=== PATIENT | male | born 1950 | race Caucasian/White ===

== ENCOUNTER 2018-09-09 01:07 | Inpatient (IN) ==
[2018-09-09] MEDS ORDERED: FUROSEMIDE 40 MG/4 ML VIAL ONE (01:16)
[2018-09-09] MEDS ORDERED: FUROSEMIDE 40 MG/4 ML VIAL IV STA (01:18)
[2018-09-09 01:31] LABS: Basophils % 1.1 % (0.0-0.8); Eosinophils % 0.5 % (0.00-10.9); Hemoglobin 8.4 GM/DL (14.0-18.0); Immature Granulocytes % 0.8 %; Immature Granulocytes Absolute 0.03 #; Lymphocytes # 0.5 10*3/uL (1.4-4.0); Lymphocytes % 14.5 % (21.2-54.2); Mean Corpuscular Hemoglobin 29 PG (27-34); Mean Corpuscular Volume 96.9 FL (87-102); Mean Platelet Volume 10.6 FL (9.6-12.0); Monocytes # 1.2 10*3/uL (0.11-0.8); Monocytes % 33.9 % (1.7-12.7); Neutrophils # 1.8 10*3/uL (1.4-7.4); Neutrophils % 49.2 % (38.7-73.9); Platelet Count 327 T/CUMM (130-400); Red Blood Count 2.89 MC/CUMM (3.8-5.5); Red Cell Distribution Width 17.7 % (9.3-17.3); White Blood Count 3.7 T/CUMM (4-12)
[2018-09-09 01:53] LABS: Albumin 2.4 G/DL (3.4-5.0); Bilirubin,Total 0.4 MG/DL (0.2-1.0); Calcium 8.9 MG/DL (8.5-10.1); Osmolality,Calculated 274.8 MOS/KG (273-304); Potassium 3.8 MMOL/L (3.5-5.1); Total Protein 6.6 G/DL (6.4-8.3)
[2018-09-09] MEDS ORDERED: ONDANSETRON 4 MG/2 ML VIAL IV PRN (03:03)
[2018-09-09] MEDS ORDERED: DEXTROSE 50% 25 GM/50 ML VIAL IV PRN (03:03)
[2018-09-09] MEDS ORDERED: DOCUSATE SODIUM 100 MG CAPSULE PO PRN (03:03)
[2018-09-09] MEDS ORDERED: GLUCAGON 1 MG VIAL IM PRN (03:03)
[2018-09-09] MEDS ORDERED: ALBUTEROL/IPRATROPIUM 3 ML NEB RESP TX PRN (03:08)
[2018-09-09 03:27] LABS: PT Patient Result 11.1 SECS; Partial Thromboplastin Time 28.8 SECS (0-40)
[2018-09-09 04:51] LABS: Anisocytosis 1+; Band Neutrophils 6 % (0-10); Lymphocytes 16 % (20-55); Macrocytosis 1+; Metamyelocytes 4 %; Myelocytes 1 %; Platelet Estimate Normal; Polychromasia Few; Segmented Neutrophils 42 % (50-85); Total Cells Counted 100
[2018-09-09] MEDS ORDERED: HYOSCYAMINE 0.125 MG TABLET SL PRN (05:14)
[2018-09-09] MEDS: LEVALBUTEROL 1.25 MG/3 ML NEB RESP TX SCH ×4 (05:30→18:56)
[2018-09-09] MEDS: ENALAPRIL 10 MG TABLET PO SCH ×2 (08:15→21:36)
[2018-09-09] MEDS: ROSUVASTATIN 20 MG TABLET PO SCH (08:15)
[2018-09-09] MEDS: MEGESTROL 40 MG TABLET PO SCH ×3 (08:15→20:08)
[2018-09-09] MEDS: TRIAMTERENE/HCTZ 37.5-25 MG CAPSULE PO SCH (08:15)
[2018-09-09] MEDS: METOPROLOL TARTRATE 100 MG TABLET PO SCH ×2 (08:16→21:36)
[2018-09-09] MEDS: FUROSEMIDE 40 MG/4 ML VIAL IV SCH ×2 (08:25→15:48)
[2018-09-09] MEDS ORDERED: ENOXAPARIN 40 MG/0.4 ML SYRINGE SUBCUT SCH (09:00)
[2018-09-09 09:01] LABS: Apearance,Urine CLEAR (Clear); Bacteria,Urine Occasional /HPF (Few); Bilirubin,Urine Negative (Negative); Blood, Urine Negative (Negative); Glucose,Urine (UA) Negative (Negative); Hyaline Casts,Urine 13 /LPF (0-3); Ketones,Urine Negative (Negative); Mucus,Urine Occasional /LPF (Occasional); Nitrite,Urine Negative (Negative); Protein,Urine Negative; RBC,Urine 1 /HPF (0-4); Urine Color Straw (Yellow); Urine Specific Gravity 1.005 (1.001-1.035); Urine Urobilinogen < 2.0 EU/DL (0.2-1.0)
[2018-09-09] MEDS: ACETAMINOPHEN 325 MG TABLET PO PRN (09:10)
[2018-09-09] MEDS: ENOXAPARIN 40 MG/0.4 ML SYRINGE SUBCUT SCH (15:45)
[2018-09-09] MEDS: MORPHINE 4 MG/1 ML VIAL IV PRN (20:09)
[2018-09-10] MEDS: LEVALBUTEROL 1.25 MG/3 ML NEB RESP TX SCH ×4 (00:23→19:04)
[2018-09-10] MEDS: MORPHINE 4 MG/1 ML VIAL IV PRN ×2 (02:23→20:25)
[2018-09-10 06:29] LABS: Basophils % 0.6 % (0.0-0.8); Hematocrit 28.9 VOL% (42.0-52.0); Hemoglobin 8.8 GM/DL (14.0-18.0); Immature Granulocytes % 2.1 %; Immature Granulocytes Absolute 0.15 #; Lymphocytes # 0.9 10*3/uL (1.4-4.0); Lymphocytes % 12.8 % (21.2-54.2); Mean Corpuscular HGB Conc 30.4 GM/DL (32-36); Mean Corpuscular Hemoglobin 29 PG (27-34); Mean Corpuscular Volume 94.8 FL (87-102); Mean Platelet Volume 10.8 FL (9.6-12.0); Monocytes % 28.4 % (1.7-12.7); NRBC # 0.03 10*3/uL; Neutrophils % 56.1 % (38.7-73.9); Platelet Count 345 T/CUMM (130-400); Red Blood Count 3.05 MC/CUMM (3.8-5.5); Red Cell Distribution Width 18.6 % (9.3-17.3)
[2018-09-10 07:02] LABS: Calcium 8.3 MG/DL (8.5-10.1); Osmolality,Calculated 274.8 MOS/KG (273-304); Potassium 2.8 MMOL/L (3.5-5.1)
[2018-09-10 07:48] LABS: Band Neutrophils 38 % (0-10); Lymphocytes 13 % (20-55); Segmented Neutrophils 24 % (50-85); Total Cells Counted 100
[2018-09-10 07:49] LABS: Anisocytosis 2+; Hypochromasia 2+; Platelet Estimate Normal; Poikilocytosis Slight
[2018-09-10] MEDS: POTASSIUM CHLORIDE RIDER 20 MEQ in PREMIX 1 EACH IV PRN ×2 (07:51→09:51)
[2018-09-10] MEDS: METOPROLOL TARTRATE 100 MG TABLET PO SCH ×2 (08:34→20:20)
[2018-09-10] MEDS: TRIAMTERENE/HCTZ 37.5-25 MG CAPSULE PO SCH (08:34)
[2018-09-10] MEDS: ROSUVASTATIN 20 MG TABLET PO SCH (08:34)
[2018-09-10] MEDS: MEGESTROL 40 MG TABLET PO SCH ×3 (08:34→20:20)
[2018-09-10] MEDS: FUROSEMIDE 40 MG/4 ML VIAL IV SCH ×2 (08:35→16:45)
[2018-09-10] MEDS: guaiFENesin/CODEINE 5 ML LIQUID PO PRN ×2 (09:58→22:10)
[2018-09-10] MEDS: POTASSIUM CHLORIDE 20 MEQ TABLET PO SCH ×3 (10:06→16:45)
[2018-09-10] MEDS: ENALAPRIL 10 MG TABLET PO SCH (10:07)
[2018-09-10] MEDS: ENALAPRIL 5 MG TABLET PO SCH (11:03)
[2018-09-10] MEDS: POTASSIUM CHLORIDE RIDER 10 MEQ in PREMIX 1 EACH IV PRN (12:41)
[2018-09-10] MEDS: ENOXAPARIN 40 MG/0.4 ML SYRINGE SUBCUT SCH (16:44)
[2018-09-11] MEDS: LEVALBUTEROL 1.25 MG/3 ML NEB RESP TX SCH ×4 (00:24→20:09)
[2018-09-11] MEDS: guaiFENesin/CODEINE 5 ML LIQUID PO PRN ×4 (02:19→20:55)
[2018-09-11] MEDS: MORPHINE 4 MG/1 ML VIAL IV PRN ×2 (04:22→21:10)
[2018-09-11 06:33] LABS: Basophils # 0.1 10*3/uL (0.0-0.2); Basophils % 0.6 % (0.0-0.8); Eosinophils % 0.2 % (0.00-10.9); Hematocrit 29.9 VOL% (42.0-52.0); Hemoglobin 9.1 GM/DL (14.0-18.0); Immature Granulocytes % 3.7 %; Mean Corpuscular HGB Conc 30.4 GM/DL (32-36); Mean Corpuscular Hemoglobin 28 PG (27-34); Mean Corpuscular Volume 93.4 FL (87-102); Mean Platelet Volume 10.7 FL (9.6-12.0); Monocytes # 2.3 10*3/uL (0.11-0.8); Monocytes % 21.3 % (1.7-12.7); NRBC # 0.03 10*3/uL; Neutrophils # 7.1 10*3/uL (1.4-7.4); Neutrophils % 65.2 % (38.7-73.9); Platelet Count 352 T/CUMM (130-400); Red Cell Distribution Width 18.2 % (9.3-17.3); White Blood Count 10.9 T/CUMM (4-12)
[2018-09-11 06:37] LABS: Calcium 8.6 MG/DL (8.5-10.1); Osmolality,Calculated 272.1 MOS/KG (273-304); Potassium 3.6 MMOL/L (3.5-5.1)
[2018-09-11 07:21] LABS: Anisocytosis 2+; Band Neutrophils 22 % (0-10); Lymphocytes 9 % (20-55); Platelet Estimate Normal; Polychromasia Slight; Segmented Neutrophils 55 % (50-85); Total Cells Counted 100
[2018-09-11 07:22] LABS: Hypochromasia 1+
[2018-09-11] MEDS: TRIAMTERENE/HCTZ 37.5-25 MG CAPSULE PO SCH (08:47)
[2018-09-11] MEDS: MEGESTROL 40 MG TABLET PO SCH ×3 (08:47→20:54)
[2018-09-11] MEDS: FUROSEMIDE 40 MG/4 ML VIAL IV SCH ×2 (08:48→15:54)
[2018-09-11] MEDS: ENALAPRIL 5 MG TABLET PO SCH (08:48)
[2018-09-11] MEDS: METOPROLOL TARTRATE 100 MG TABLET PO SCH ×2 (08:49→20:53)
[2018-09-11] MEDS: POTASSIUM CHLORIDE RIDER 20 MEQ in PREMIX 1 EACH IV PRN (08:50)
[2018-09-11] MEDS ORDERED: MAGNESIUM SULF RIDER 2 GM in PREMIX 1 EACH IV ONE (09:36)
[2018-09-11] MEDS: POLYETHYLENE GLYCOL POWDER 17 GM PACK PO SCH (13:04)
[2018-09-11] MEDS: fentaNYL 50 MCG/HR PATCH TRANSDERM SCH (13:04)
[2018-09-11] MEDS: DOCUSATE SODIUM 100 MG CAPSULE PO SCH ×2 (13:05→20:54)
[2018-09-11] MEDS: INSULIN REGULAR 100 UNIT/ML SUBCUT SCH ×2 (15:51→21:08)
[2018-09-11] MEDS: ENOXAPARIN 40 MG/0.4 ML SYRINGE SUBCUT SCH (15:54)
[2018-09-12] MEDS: LEVALBUTEROL 1.25 MG/3 ML NEB RESP TX SCH ×4 (00:18→19:08)
[2018-09-12] MEDS: guaiFENesin/CODEINE 5 ML LIQUID PO PRN ×2 (01:03→22:03)
[2018-09-12] MEDS: FUROSEMIDE 40 MG/4 ML VIAL IV SCH ×2 (09:47→17:25)
[2018-09-12] MEDS: DOCUSATE SODIUM 100 MG CAPSULE PO SCH ×2 (09:48→22:04)
[2018-09-12] MEDS: MEGESTROL 40 MG TABLET PO SCH ×3 (09:48→22:04)
[2018-09-12] MEDS: POLYETHYLENE GLYCOL POWDER 17 GM PACK PO SCH (09:48)
[2018-09-12] MEDS: INSULIN REGULAR 100 UNIT/ML SUBCUT SCH ×3 (10:53→22:05)
[2018-09-12] MEDS: TRIAMTERENE/HCTZ 37.5-25 MG CAPSULE PO SCH (10:54)
[2018-09-12] MEDS: METOPROLOL TARTRATE 100 MG TABLET PO SCH ×2 (10:54→22:05)
[2018-09-12] MEDS: ENOXAPARIN 40 MG/0.4 ML SYRINGE SUBCUT SCH (17:26)
[2018-09-12] MEDS: ZINC OXIDE PASTE 113 GM TUBE TOP SCH ×2 (17:27→22:05)
[2018-09-12] MEDS: MORPHINE 4 MG/1 ML VIAL IV PRN (22:06)
[2018-09-13] MEDS: LEVALBUTEROL 1.25 MG/3 ML NEB RESP TX SCH ×4 (00:20→20:05)
[2018-09-13] MEDS: MORPHINE 4 MG/1 ML VIAL IV PRN ×3 (02:03→21:14)
[2018-09-13] MEDS ORDERED: HEPARIN LOCK FLUSH 500 UNIT/5 ML SYRINGE IV ONE (04:32)
[2018-09-13] MEDS: HEPARIN LOCK FLUSH 500 UNIT/5 ML SYRINGE IV PRN (04:40)
[2018-09-13 05:50] LABS: Basophils # 0.1 10*3/uL (0.0-0.2); Basophils % 0.8 % (0.0-0.8); Eosinophils % 0.2 % (0.00-10.9); Hematocrit 30.9 VOL% (42.0-52.0); Hemoglobin 9.3 GM/DL (14.0-18.0); Immature Granulocytes % 5.5 %; Immature Granulocytes Absolute 0.94 #; Lymphocytes # 1.1 10*3/uL (1.4-4.0); Lymphocytes % 6.4 % (21.2-54.2); Mean Corpuscular HGB Conc 30.1 GM/DL (32-36); Mean Corpuscular Hemoglobin 28 PG (27-34); Mean Corpuscular Volume 92.8 FL (87-102); Mean Platelet Volume 10.2 FL (9.6-12.0); Monocytes # 2.2 10*3/uL (0.11-0.8); Neutrophils # 12.7 10*3/uL (1.4-7.4); Neutrophils % 74.1 % (38.7-73.9); Platelet Count 405 T/CUMM (130-400); Red Blood Count 3.33 MC/CUMM (3.8-5.5); Red Cell Distribution Width 18.6 % (9.3-17.3); White Blood Count 17.1 T/CUMM (4-12)
[2018-09-13 06:09] LABS: Calcium 8.6 MG/DL (8.5-10.1); Hypochromasia 1+; Lymphocytes 2 % (20-55); Nucleated Red Blood Cells 1 (0-5); Ovalocytes Slight; Platelet Estimate Adequate; Potassium 3.2 MMOL/L (3.5-5.1); Segmented Neutrophils 84 % (50-85); Total Cells Counted 100
[2018-09-13] MEDS ORDERED: fentaNYL 50 MCG/HR PATCH TRANSDERM SCH (09:00)
[2018-09-13] MEDS ORDERED: FUROSEMIDE 40 MG/4 ML VIAL IV ONE (09:03)
[2018-09-13] MEDS: INSULIN REGULAR 100 UNIT/ML SUBCUT SCH ×4 (09:43→21:04)
[2018-09-13] MEDS: POTASSIUM CHLORIDE 20 MEQ TABLET PO SCH ×4 (09:44→21:11)
[2018-09-13] MEDS: MEGESTROL 40 MG TABLET PO SCH ×4 (09:45→21:14)
[2018-09-13] MEDS: DOCUSATE SODIUM 100 MG CAPSULE PO SCH ×2 (09:45→21:14)
[2018-09-13] MEDS: POLYETHYLENE GLYCOL POWDER 17 GM PACK PO SCH (09:45)
[2018-09-13] MEDS: METOPROLOL TARTRATE 100 MG TABLET PO SCH ×2 (09:50→21:13)
[2018-09-13] MEDS: TRIAMTERENE/HCTZ 37.5-25 MG CAPSULE PO SCH (09:50)
[2018-09-13] MEDS: ZINC OXIDE PASTE 113 GM TUBE TOP SCH ×2 (09:51→21:14)
[2018-09-13] MEDS ORDERED: MAGNESIUM CITRATE 300 ML BOTTLE PO ONE (13:38)
[2018-09-13] MEDS: guaiFENesin/CODEINE 5 ML LIQUID PO PRN (14:43)
[2018-09-13] MEDS: FUROSEMIDE 20 MG/2 ML VIAL IV SCH (16:00)
[2018-09-13] MEDS: FUROSEMIDE 40 MG/4 ML VIAL IV SCH (17:41)
[2018-09-13] MEDS: HYDROcodone/CHLORPHENIRAMINE ER 5 ML UDCUP PO PRN (21:10)
[2018-09-14] MEDS: LEVALBUTEROL 1.25 MG/3 ML NEB RESP TX SCH ×4 (00:28→19:10)
[2018-09-14 08:01] LABS: Basophils # 0.2 10*3/uL (0.0-0.2); Basophils % 0.8 % (0.0-0.8); Eosinophils % 0.2 % (0.00-10.9); Hematocrit 29.2 VOL% (42.0-52.0); Hemoglobin 8.7 GM/DL (14.0-18.0); Immature Granulocytes % 5.7 %; Immature Granulocytes Absolute 1.05 #; Lymphocytes # 1.1 10*3/uL (1.4-4.0); Mean Corpuscular HGB Conc 29.8 GM/DL (32-36); Mean Corpuscular Hemoglobin 28 PG (27-34); Mean Corpuscular Volume 94.8 FL (87-102); Monocytes % 10.7 % (1.7-12.7); NRBC # 0.02 10*3/uL; Neutrophils # 14.1 10*3/uL (1.4-7.4); Neutrophils % 76.6 % (38.7-73.9); Platelet Count 377 T/CUMM (130-400); Red Blood Count 3.08 MC/CUMM (3.8-5.5); White Blood Count 18.5 T/CUMM (4-12)
[2018-09-14] MEDS: INSULIN REGULAR 100 UNIT/ML SUBCUT SCH ×4 (08:11→21:12)
[2018-09-14 08:26] LABS: Band Neutrophils 1 % (0-10); Hypochromasia 1+; Lymphocytes 6 % (20-55); Ovalocytes Slight; Platelet Estimate Adequate; Segmented Neutrophils 85 % (50-85); Total Cells Counted 100
[2018-09-14 08:27] LABS: Calcium 8.4 MG/DL (8.5-10.1); Osmolality,Calculated 278.7 MOS/KG (273-304); Potassium 3.4 MMOL/L (3.5-5.1)
[2018-09-14] MEDS: TRIAMTERENE/HCTZ 37.5-25 MG CAPSULE PO SCH (08:54)
[2018-09-14] MEDS: MEGESTROL 40 MG TABLET PO SCH ×3 (09:02→21:12)
[2018-09-14] MEDS: METOPROLOL TARTRATE 100 MG TABLET PO SCH ×3 (09:03→21:53)
[2018-09-14] MEDS: DOCUSATE SODIUM 100 MG CAPSULE PO SCH ×2 (09:04→21:13)
[2018-09-14] MEDS: fentaNYL 50 MCG/HR PATCH TRANSDERM SCH (09:04)
[2018-09-14] MEDS: FUROSEMIDE 20 MG/2 ML VIAL IV SCH ×2 (09:05→17:00)
[2018-09-14] MEDS: ZINC OXIDE PASTE 113 GM TUBE TOP SCH ×2 (09:05→21:14)
[2018-09-14] MEDS: POLYETHYLENE GLYCOL POWDER 17 GM PACK PO SCH (09:05)
[2018-09-14] MEDS: HYDROcodone/CHLORPHENIRAMINE ER 5 ML UDCUP PO PRN (10:19)
[2018-09-14] MEDS: MORPHINE 4 MG/1 ML VIAL IV PRN ×2 (17:08→21:16)
[2018-09-15] MEDS: LEVALBUTEROL 1.25 MG/3 ML NEB RESP TX SCH ×4 (01:30→19:32)
[2018-09-15] MEDS: MORPHINE 4 MG/1 ML VIAL IV PRN ×3 (05:21→21:22)
[2018-09-15 07:47] LABS: Basophils # 0.2 10*3/uL (0.0-0.2); Basophils % 0.7 % (0.0-0.8); Eosinophils # 0.1 10*3/uL (0.0-0.87); Eosinophils % 0.2 % (0.00-10.9); Hematocrit 31.7 VOL% (42.0-52.0); Hemoglobin 9.3 GM/DL (14.0-18.0); Immature Granulocytes % 4.5 %; Immature Granulocytes Absolute 1.15 #; Lymphocytes # 0.6 10*3/uL (1.4-4.0); Lymphocytes % 2.2 % (21.2-54.2); Mean Corpuscular HGB Conc 29.3 GM/DL (32-36); Mean Corpuscular Hemoglobin 28 PG (27-34); Mean Corpuscular Volume 94.1 FL (87-102); Mean Platelet Volume 10.3 FL (9.6-12.0); Monocytes # 1.8 10*3/uL (0.11-0.8); Monocytes % 7.1 % (1.7-12.7); Neutrophils # 21.9 10*3/uL (1.4-7.4); Neutrophils % 85.3 % (38.7-73.9); Platelet Count 413 T/CUMM (130-400); Red Blood Count 3.37 MC/CUMM (3.8-5.5); White Blood Count 25.6 T/CUMM (4-12)
[2018-09-15 07:58] LABS: Band Neutrophils 4 % (0-10); Hypochromasia 1+; Lymphocytes 3 % (20-55); Ovalocytes Slight; Platelet Estimate Adequate; Segmented Neutrophils 87 % (50-85); Total Cells Counted 100
[2018-09-15 08:10] LABS: Calcium 8.4 MG/DL (8.5-10.1); Potassium 3.1 MMOL/L (3.5-5.1)
[2018-09-15] MEDS ORDERED: DOXYCYCLINE HYCLATE INJ 200 MG, LIDOCAINE 1% INJ 20 ML in STERILE WATER INJ 40 ML INTRAPLEUR ONE (09:24)
[2018-09-15] MEDS: POLYETHYLENE GLYCOL POWDER 17 GM PACK PO SCH (09:44)
[2018-09-15] MEDS: FUROSEMIDE 20 MG/2 ML VIAL IV SCH ×2 (09:44→16:10)
[2018-09-15] MEDS: INSULIN REGULAR 100 UNIT/ML SUBCUT SCH ×4 (09:45→21:19)
[2018-09-15] MEDS: TRIAMTERENE/HCTZ 37.5-25 MG CAPSULE PO SCH (09:45)
[2018-09-15] MEDS: METOPROLOL TARTRATE 100 MG TABLET PO SCH ×2 (09:46→21:18)
[2018-09-15] MEDS: DOCUSATE SODIUM 100 MG CAPSULE PO SCH ×2 (09:46→21:18)
[2018-09-15] MEDS: HYDROcodone/CHLORPHENIRAMINE ER 5 ML UDCUP PO PRN ×2 (09:46→21:19)
[2018-09-15] MEDS: MEGESTROL 40 MG TABLET PO SCH ×3 (09:46→21:18)
[2018-09-15] MEDS: ZINC OXIDE PASTE 113 GM TUBE TOP SCH ×2 (10:25→21:24)
[2018-09-15] MEDS: LEVOFLOXACIN INJ 750 MG in PREMIX 1 EACH IV SCH (13:16)
[2018-09-16] MEDS: LEVALBUTEROL 1.25 MG/3 ML NEB RESP TX SCH ×4 (01:44→19:46)
[2018-09-16] MEDS: HYDROcodone/CHLORPHENIRAMINE ER 5 ML UDCUP PO PRN ×2 (06:05→18:25)
[2018-09-16] MEDS: FUROSEMIDE 20 MG/2 ML VIAL IV SCH (08:08)
[2018-09-16] MEDS: POTASSIUM CHLORIDE RIDER 20 MEQ in PREMIX 1 EACH IV PRN ×3 (08:29→21:40)
[2018-09-16] MEDS ORDERED: SODIUM CHLORIDE 0.65% NASAL SPRAY 45 ML BOTTLE BOTH NARES PRN (08:35)
[2018-09-16] MEDS: MEGESTROL 40 MG TABLET PO SCH ×3 (08:58→21:35)
[2018-09-16] MEDS: DOCUSATE SODIUM 100 MG CAPSULE PO SCH ×2 (08:59→21:35)
[2018-09-16] MEDS: METOPROLOL TARTRATE 100 MG TABLET PO SCH ×2 (08:59→21:36)
[2018-09-16] MEDS: MORPHINE 4 MG/1 ML VIAL IV PRN ×3 (09:00→18:25)
[2018-09-16] MEDS: INSULIN REGULAR 100 UNIT/ML SUBCUT SCH ×4 (09:04→21:38)
[2018-09-16] MEDS: ZINC OXIDE PASTE 113 GM TUBE TOP SCH ×2 (09:07→21:39)
[2018-09-16] MEDS: POLYETHYLENE GLYCOL POWDER 17 GM PACK PO SCH (09:07)
[2018-09-16] MEDS ORDERED: DOXYCYCLINE HYCLATE INJ 200 MG, LIDOCAINE 1% INJ 20 ML in STERILE WATER INJ 40 ML INTRAPLEUR ONE (10:00)
[2018-09-16] MEDS: LEVOFLOXACIN INJ 750 MG in PREMIX 1 EACH IV SCH (13:08)
[2018-09-17] MEDS: ACETAMINOPHEN 325 MG TABLET PO PRN (00:01)
[2018-09-17] MEDS: POTASSIUM CHLORIDE RIDER 10 MEQ in PREMIX 1 EACH IV PRN (00:01)
[2018-09-17] MEDS: LEVALBUTEROL 1.25 MG/3 ML NEB RESP TX SCH ×4 (01:42→19:28)
[2018-09-17 05:47] LABS: Basophils # 0.1 10*3/uL (0.0-0.2); Basophils % 0.5 % (0.0-0.8); Eosinophils # 0.1 10*3/uL (0.0-0.87); Eosinophils % 0.5 % (0.00-10.9); Hematocrit 28.8 VOL% (42.0-52.0); Hemoglobin 8.6 GM/DL (14.0-18.0); Immature Granulocytes % 4.3 %; Immature Granulocytes Absolute 0.58 #; Lymphocytes % 7.2 % (21.2-54.2); Mean Corpuscular HGB Conc 29.9 GM/DL (32-36); Mean Corpuscular Hemoglobin 28 PG (27-34); Mean Corpuscular Volume 93.5 FL (87-102); Mean Platelet Volume 10.6 FL (9.6-12.0); Monocytes # 1.7 10*3/uL (0.11-0.8); Monocytes % 12.3 % (1.7-12.7); Neutrophils # 10.1 10*3/uL (1.4-7.4); Neutrophils % 75.2 % (38.7-73.9); Platelet Count 329 T/CUMM (130-400); Red Blood Count 3.08 MC/CUMM (3.8-5.5); Red Cell Distribution Width 18.8 % (9.3-17.3); White Blood Count 13.5 T/CUMM (4-12)
[2018-09-17 06:22] LABS: Calcium 8.5 MG/DL (8.5-10.1); Osmolality,Calculated 271.2 MOS/KG (273-304); Potassium 3.6 MMOL/L (3.5-5.1)
[2018-09-17 07:25] LABS: Hypochromasia 1+; Lymphocytes 5 % (20-55); Platelet Estimate Normal; Segmented Neutrophils 88 % (50-85)
[2018-09-17 07:26] LABS: Polychromasia Few; Total Cells Counted 100
[2018-09-17] MEDS: fentaNYL 50 MCG/HR PATCH TRANSDERM SCH (08:41)
[2018-09-17] MEDS: METOPROLOL TARTRATE 100 MG TABLET PO SCH ×2 (08:42→20:49)
[2018-09-17] MEDS: DOCUSATE SODIUM 100 MG CAPSULE PO SCH ×2 (08:42→20:49)
[2018-09-17] MEDS: POLYETHYLENE GLYCOL POWDER 17 GM PACK PO SCH (08:42)
[2018-09-17] MEDS: MEGESTROL 40 MG TABLET PO SCH ×3 (08:42→20:50)
[2018-09-17] MEDS: HYDROcodone/CHLORPHENIRAMINE ER 5 ML UDCUP PO PRN ×2 (08:43→20:49)
[2018-09-17] MEDS: MORPHINE 4 MG/1 ML VIAL IV PRN ×3 (08:43→19:45)
[2018-09-17] MEDS: INSULIN REGULAR 100 UNIT/ML SUBCUT SCH ×4 (15:30→20:57)
[2018-09-17] MEDS: LEVOFLOXACIN INJ 750 MG in PREMIX 1 EACH IV SCH (15:36)
[2018-09-17] MEDS: guaiFENesin/CODEINE 5 ML LIQUID PO PRN (17:28)
[2018-09-17] MEDS: ZINC OXIDE PASTE 113 GM TUBE TOP SCH (17:28)
[2018-09-18] MEDS: LEVALBUTEROL 1.25 MG/3 ML NEB RESP TX SCH ×4 (01:12→19:10)
[2018-09-18] MEDS: ZINC OXIDE PASTE 113 GM TUBE TOP SCH ×3 (02:48→21:21)
[2018-09-18] MEDS: MEGESTROL 40 MG TABLET PO SCH ×3 (08:33→21:20)
[2018-09-18] MEDS: METOPROLOL TARTRATE 100 MG TABLET PO SCH ×2 (08:33→21:20)
[2018-09-18] MEDS: DOCUSATE SODIUM 100 MG CAPSULE PO SCH ×2 (08:33→21:25)
[2018-09-18] MEDS: INSULIN REGULAR 100 UNIT/ML SUBCUT SCH ×4 (08:34→21:23)
[2018-09-18] MEDS: POLYETHYLENE GLYCOL POWDER 17 GM PACK PO SCH (08:34)
[2018-09-18] MEDS: MORPHINE 4 MG/1 ML VIAL IV PRN ×3 (08:45→18:44)
[2018-09-18] MEDS: LEVOFLOXACIN INJ 750 MG in PREMIX 1 EACH IV SCH (12:27)
[2018-09-18] MEDS: HYDROcodone/CHLORPHENIRAMINE ER 5 ML UDCUP PO PRN (21:22)
[2018-09-19] MEDS: MORPHINE 4 MG/1 ML VIAL IV PRN ×5 (00:03→23:23)
[2018-09-19] MEDS: LEVALBUTEROL 1.25 MG/3 ML NEB RESP TX SCH ×4 (00:54→20:04)
[2018-09-19 04:45] LABS: Basophils # 0.1 10*3/uL (0.0-0.2); Basophils % 0.5 % (0.0-0.8); Eosinophils # 0.1 10*3/uL (0.0-0.87); Eosinophils % 0.4 % (0.00-10.9); Hematocrit 26.2 VOL% (42.0-52.0); Hemoglobin 7.6 GM/DL (14.0-18.0); Immature Granulocytes % 2.3 %; Immature Granulocytes Absolute 0.35 #; Lymphocytes # 1.1 10*3/uL (1.4-4.0); Lymphocytes % 7.5 % (21.2-54.2); Mean Corpuscular Hemoglobin 27 PG (27-34); Mean Corpuscular Volume 93.6 FL (87-102); Mean Platelet Volume 10.9 FL (9.6-12.0); Monocytes # 1.6 10*3/uL (0.11-0.8); Monocytes % 10.9 % (1.7-12.7); Neutrophils # 11.8 10*3/uL (1.4-7.4); Neutrophils % 78.4 % (38.7-73.9); Platelet Count 349 T/CUMM (130-400); Red Cell Distribution Width 19.4 % (9.3-17.3)
[2018-09-19 05:06] LABS: Alanine Aminotransferase 33 U/L (16-61); Albumin 1.5 G/DL (3.4-5.0); Alkaline Phosphatase 91 U/L (45-117); Aspartate Amino Transferase 32 U/L (0-37); Bilirubin,Total < 0.39 MG/DL (0.2-1.0); Blood Urea Nitrogen 17 MG/DL (7-18); Calcium 8.5 MG/DL (8.5-10.1); Glucose 126 MG/DL (74-106); Osmolality,Calculated 278.7 MOS/KG (273-304); Potassium 3.4 MMOL/L (3.5-5.1); Sodium 138 MMOL/L (136-145); Total Protein 5.9 G/DL (6.4-8.3)
[2018-09-19] MEDS ORDERED: SODIUM CHLORIDE 0.9% 1,000 ML IV PRN (07:56)
[2018-09-19] MEDS: INSULIN REGULAR 100 UNIT/ML SUBCUT SCH ×4 (08:41→21:10)
[2018-09-19] MEDS: ZINC OXIDE PASTE 113 GM TUBE TOP SCH ×2 (11:09→21:12)
[2018-09-19] MEDS: DOCUSATE SODIUM 100 MG CAPSULE PO SCH ×2 (11:09→21:11)
[2018-09-19] MEDS: METOPROLOL TARTRATE 100 MG TABLET PO SCH ×2 (11:09→21:11)
[2018-09-19] MEDS: POLYETHYLENE GLYCOL POWDER 17 GM PACK PO SCH (11:10)
[2018-09-19] MEDS: MEGESTROL 40 MG TABLET PO SCH ×3 (11:10→21:11)
[2018-09-19] MEDS: LEVOFLOXACIN INJ 750 MG in PREMIX 1 EACH IV SCH (18:54)
[2018-09-19] MEDS: HYDROcodone/CHLORPHENIRAMINE ER 5 ML UDCUP PO PRN (21:16)
[2018-09-20] MEDS: LEVALBUTEROL 1.25 MG/3 ML NEB RESP TX SCH ×4 (00:45→19:28)
[2018-09-20] MEDS: MORPHINE 4 MG/1 ML VIAL IV PRN ×4 (04:43→21:04)
[2018-09-20 08:19] LABS: Basophils # 0.1 10*3/uL (0.0-0.2); Basophils % 0.6 % (0.0-0.8); Eosinophils % 0.2 % (0.00-10.9); Hematocrit 33.7 VOL% (42.0-52.0); Immature Granulocytes % 1.5 %; Immature Granulocytes Absolute 0.25 #; Lymphocytes # 1.1 10*3/uL (1.4-4.0); Lymphocytes % 6.3 % (21.2-54.2); Mean Corpuscular HGB Conc 30.3 GM/DL (32-36); Mean Corpuscular Hemoglobin 27 PG (27-34); Mean Corpuscular Volume 87.5 FL (87-102); Mean Platelet Volume 9.8 FL (9.6-12.0); Monocytes # 1.6 10*3/uL (0.11-0.8); Monocytes % 9.4 % (1.7-12.7); Neutrophils # 13.9 10*3/uL (1.4-7.4); Platelet Count 333 T/CUMM (130-400); Red Cell Distribution Width 24.1 % (9.3-17.3)
[2018-09-20 08:28] LABS: Hemoglobin 10.2 GM/DL (14.0-18.0); Red Blood Count 3.85 MC/CUMM (3.8-5.5)
[2018-09-20 08:41] LABS: Hypochromasia 1+; Microcytosis 1+
[2018-09-20 08:53] LABS: Albumin 1.7 G/DL (3.4-5.0); Calcium 8.9 MG/DL (8.5-10.1); Osmolality,Calculated 277.7 MOS/KG (273-304); Potassium 3.5 MMOL/L (3.5-5.1); Total Protein 6.4 G/DL (6.4-8.3)
[2018-09-20] MEDS: MEGESTROL 40 MG TABLET PO SCH ×3 (09:04→21:01)
[2018-09-20] MEDS: METOPROLOL TARTRATE 100 MG TABLET PO SCH ×2 (09:04→21:00)
[2018-09-20] MEDS: POLYETHYLENE GLYCOL POWDER 17 GM PACK PO SCH (09:05)
[2018-09-20] MEDS: HYDROcodone/CHLORPHENIRAMINE ER 5 ML UDCUP PO PRN ×2 (09:05→21:00)
[2018-09-20 09:06] LABS: Platelet Estimate Normal
[2018-09-20] MEDS: HEPARIN LOCK FLUSH 500 UNIT/5 ML SYRINGE IV PRN (09:06)
[2018-09-20 09:07] LABS: Anisocytosis 2+
[2018-09-20] MEDS: INSULIN REGULAR 100 UNIT/ML SUBCUT SCH ×4 (09:36→21:03)
[2018-09-20] MEDS: DOCUSATE SODIUM 100 MG CAPSULE PO SCH ×2 (09:36→21:00)
[2018-09-20] MEDS: LEVOFLOXACIN INJ 750 MG in PREMIX 1 EACH IV SCH (13:47)
[2018-09-20] MEDS ORDERED: MORPHINE 4 MG/1 ML VIAL IV PRN (14:22)
[2018-09-20] MEDS: ZINC OXIDE PASTE 113 GM TUBE TOP SCH ×2 (15:00→21:02)
[2018-09-21] MEDS: LEVALBUTEROL 1.25 MG/3 ML NEB RESP TX SCH ×4 (00:07→19:22)
[2018-09-21] MEDS: MORPHINE 4 MG/1 ML VIAL IV PRN ×5 (03:02→22:36)
[2018-09-21 05:08] LABS: Basophils # 0.1 10*3/uL (0.0-0.2); Basophils % 0.6 % (0.0-0.8); Eosinophils # 0.1 10*3/uL (0.0-0.87); Eosinophils % 0.4 % (0.00-10.9); Hematocrit 31.5 VOL% (42.0-52.0); Hemoglobin 9.9 GM/DL (14.0-18.0); Immature Granulocytes % 0.9 %; Immature Granulocytes Absolute 0.12 #; Lymphocytes % 7.3 % (21.2-54.2); Mean Corpuscular HGB Conc 31.4 GM/DL (32-36); Mean Corpuscular Hemoglobin 27 PG (27-34); Mean Platelet Volume 10.4 FL (9.6-12.0); Monocytes # 1.3 10*3/uL (0.11-0.8); Monocytes % 9.9 % (1.7-12.7); Neutrophils % 80.9 % (38.7-73.9); Platelet Count 323 T/CUMM (130-400); Red Blood Count 3.62 MC/CUMM (3.8-5.5); Red Cell Distribution Width 23.9 % (9.3-17.3); White Blood Count 13.6 T/CUMM (4-12)
[2018-09-21 05:42] LABS: Albumin 1.5 G/DL (3.4-5.0); Bilirubin,Total 0.8 MG/DL (0.2-1.0); Calcium 8.3 MG/DL (8.5-10.1); Osmolality,Calculated 282.3 MOS/KG (273-304); Potassium 3.6 MMOL/L (3.5-5.1); Total Protein 5.7 G/DL (6.4-8.3)
[2018-09-21] MEDS: MEGESTROL 40 MG TABLET PO SCH ×3 (08:55→20:54)
[2018-09-21] MEDS: DOCUSATE SODIUM 100 MG CAPSULE PO SCH ×2 (08:55→20:54)
[2018-09-21] MEDS: METOPROLOL TARTRATE 100 MG TABLET PO SCH (08:55)
[2018-09-21] MEDS: POLYETHYLENE GLYCOL POWDER 17 GM PACK PO SCH (08:56)
[2018-09-21] MEDS: HYDROcodone/CHLORPHENIRAMINE ER 5 ML UDCUP PO PRN (08:56)
[2018-09-21] MEDS ORDERED: DOXYCYCLINE HYCLATE INJ 200 MG, LIDOCAINE 1% INJ 20 ML in STERILE WATER INJ 40 ML INTRAPLEUR ONE ×2 (09:54→12:00)
[2018-09-21] MEDS: INSULIN REGULAR 100 UNIT/ML SUBCUT SCH ×3 (10:16→20:53)
[2018-09-21] MEDS: FUROSEMIDE 20 MG TABLET PO SCH (11:07)
[2018-09-21] MEDS: LEVOFLOXACIN INJ 750 MG in PREMIX 1 EACH IV SCH (12:34)
[2018-09-21] MEDS: ZINC OXIDE PASTE 113 GM TUBE TOP SCH ×2 (17:49→20:59)
[2018-09-21] MEDS: METOPROLOL TARTRATE 25 MG TABLET PO SCH (20:53)
[2018-09-22] MEDS: LEVALBUTEROL 1.25 MG/3 ML NEB RESP TX SCH ×2 (00:35→07:35)
[2018-09-22 04:27] LABS: Basophils % 0.5 % (0.0-0.8); Eosinophils % 0.3 % (0.00-10.9); Hematocrit 31.3 VOL% (42.0-52.0); Hemoglobin 9.5 GM/DL (14.0-18.0); Immature Granulocytes % 0.8 %; Lymphocytes % 7.3 % (21.2-54.2); Mean Corpuscular HGB Conc 30.4 GM/DL (32-36); Mean Corpuscular Hemoglobin 27 PG (27-34); Mean Corpuscular Volume 89.4 FL (87-102); Mean Platelet Volume 10.3 FL (9.6-12.0); Monocytes # 1.6 10*3/uL (0.11-0.8); Monocytes % 11.9 % (1.7-12.7); Neutrophils # 10.4 10*3/uL (1.4-7.4); Neutrophils % 79.2 % (38.7-73.9); Platelet Count 298 T/CUMM (130-400); Red Cell Distribution Width 23.9 % (9.3-17.3); White Blood Count 13.1 T/CUMM (4-12)
[2018-09-22 04:28] LABS: Basophils # 0.1 10*3/uL (0.0-0.2); Immature Granulocytes Absolute 0.11 #
[2018-09-22 05:21] LABS: Albumin 1.4 G/DL (3.4-5.0); Bilirubin,Total 0.5 MG/DL (0.2-1.0); Calcium 8.2 MG/DL (8.5-10.1); Osmolality,Calculated 282.3 MOS/KG (273-304); Potassium 3.9 MMOL/L (3.5-5.1); Total Protein 5.9 G/DL (6.4-8.3)
[2018-09-22 05:25] LABS: Hypochromasia 2+; Ovalocytes 1+; Platelet Estimate Normal; Target Cells Few
[2018-09-22] MEDS: MORPHINE 4 MG/1 ML VIAL IV PRN ×2 (08:51→12:54)
[2018-09-22] MEDS: METOPROLOL TARTRATE 25 MG TABLET PO SCH (08:52)
[2018-09-22] MEDS: MEGESTROL 40 MG TABLET PO SCH (08:52)
[2018-09-22] MEDS: DOCUSATE SODIUM 100 MG CAPSULE PO SCH (08:52)
[2018-09-22] MEDS: POLYETHYLENE GLYCOL POWDER 17 GM PACK PO SCH (08:52)
[2018-09-22] MEDS: FUROSEMIDE 20 MG TABLET PO SCH (08:52)
[2018-09-22] MEDS: INSULIN REGULAR 100 UNIT/ML SUBCUT SCH (10:54)
[2018-09-22 11:35] VITALS: BP 121/47
== END 2018-09-22 14:13 | disposition home health service (06) | DRG 180 ==
LOC: EDBD → EDUNIT# → N.EDINP 01:07 → N.ED 01:07 → SUATTDRO 03:00 → N.2E 03:39 → N.ICU 04:06 → SUATTDRO 12:58 → N.4E 09-10 14:48
PROVIDERS: ADMIT Internal Medicine Infectious Disease; ATTEND Internal Medicine
PROC: IRGDHTC (2018-09-14 14:35)

== ENCOUNTER 2018-09-30 14:05 | Inpatient (IN) ==
[2018-09-30] MEDS ORDERED: ONDANSETRON 4 MG/2 ML VIAL IV STA (14:27)
[2018-09-30] MEDS ORDERED: MEROPENEM 1,000 MG in SODIUM CHLORIDE 0.9% 100 ML IV STA (14:27)
[2018-09-30] MEDS ORDERED: methylPREDNISolone SOD SUC 125 MG/2 ML VIAL IV STA (14:27)
[2018-09-30] MEDS ORDERED: ALBUTEROL 2.5 MG/3 ML NEB RESP TX SCH (14:30)
[2018-09-30 15:24] LABS: Basophils # 0.1 10*3/uL (0.0-0.2); Basophils % 0.5 % (0.0-0.8); Eosinophils % 0.4 % (0.00-10.9); Hematocrit 32.6 VOL% (42.0-52.0); Hemoglobin 9.6 GM/DL (14.0-18.0); Immature Granulocytes % 0.4 %; Immature Granulocytes Absolute 0.04 #; Lymphocytes # 0.5 10*3/uL (1.4-4.0); Lymphocytes % 5.6 % (21.2-54.2); Mean Corpuscular HGB Conc 29.4 GM/DL (32-36); Mean Corpuscular Hemoglobin 26 PG (27-34); Mean Corpuscular Volume 89.6 FL (87-102); Mean Platelet Volume 10.7 FL (9.6-12.0); Monocytes # 0.8 10*3/uL (0.11-0.8); Monocytes % 8.5 % (1.7-12.7); Neutrophils # 8.1 10*3/uL (1.4-7.4); Neutrophils % 84.6 % (38.7-73.9); Platelet Count 367 T/CUMM (130-400); Red Blood Count 3.64 MC/CUMM (3.8-5.5); Red Cell Distribution Width 22.7 % (9.3-17.3); White Blood Count 9.6 T/CUMM (4-12)
[2018-09-30 15:30] LABS: Apearance,Urine Slightly Hazy (Clear); Bilirubin,Urine Negative (Negative); Blood, Urine Negative (Negative); Glucose,Urine (UA) Negative (Negative); Hyaline Casts,Urine 3 /LPF (0-3); Ketones,Urine 20 mg/dL (Negative); Mucus,Urine Few /LPF (Occasional); Nitrite,Urine Negative (Negative); Protein,Urine 30 MG/DL; RBC,Urine 2 /HPF (0-4); Urine Color Amber (Yellow); Urine Specific Gravity 1.025 (1.001-1.035); WBC,Urine 1 /HPF (0-6)
[2018-09-30 15:40] LABS: INR 1.1; PT Patient Result 11.4 SECS; Partial Thromboplastin Time 28.6 SECS (0-40)
[2018-09-30] MEDS ORDERED: FUROSEMIDE 40 MG/4 ML VIAL IV STA (15:52)
[2018-09-30 15:55] LABS: Alanine Aminotransferase 11 U/L (16-61); Albumin 1.8 G/DL (3.4-5.0); Alkaline Phosphatase 95 U/L (45-117); Aspartate Amino Transferase 17 U/L (0-37); Blood Urea Nitrogen 11 MG/DL (7-18); Calcium 8.7 MG/DL (8.5-10.1); Glucose 97 MG/DL (74-106); Osmolality,Calculated 277.4 MOS/KG (273-304); Potassium 3.3 MMOL/L (3.5-5.1); Sodium 140 MMOL/L (136-145); Total Protein 6.5 G/DL (6.4-8.3); Troponin I 0.016 NG/ML (0.00-0.045)
[2018-09-30 15:59] LABS: Platelet Estimate Normal
[2018-09-30 16:00] LABS: Anisocytosis 1+; Hypochromasia Slight; Poikilocytosis 1+
[2018-09-30] MEDS ORDERED: ALBUTEROL 2.5 MG/3 ML NEB RESP TX PRN ×2 (17:18→17:24)
[2018-09-30] MEDS ORDERED: MORPHINE 4 MG/1 ML VIAL IV PRN (17:24)
[2018-09-30] MEDS ORDERED: diphenhydrAMINE CAP 25 MG CAPSULE PO PRN (17:24)
[2018-09-30] MEDS ORDERED: PROMETHAZINE 25 MG/1 ML VIAL IM PRN (17:24)
[2018-09-30] MEDS ORDERED: traZODone 50 MG TABLET PO PRN (17:24)
[2018-09-30] MEDS ORDERED: PIPERACILLIN/TAZOBACTAM 3,375 MG in SODIUM CHLORIDE 0.9% 100 ML IV SCH (17:30)
[2018-09-30] MEDS ORDERED: cefTRIAXone 1,000 MG in SYRINGE 1 EACH IV SCH (17:30)
[2018-09-30] MEDS ORDERED: PNEUMOCOCCAL VACCINE (13 VALENT) 0.5 ML SYRINGE IM ONE (18:09)
[2018-09-30 18:13] LABS: Lactic Acid 4.6 MMOL/L (0.4-2.0)
[2018-09-30] MEDS: SODIUM CHLORIDE 0.9% 1,000 ML IV SCH (18:16)
[2018-09-30] MEDS: PANTOPRAZOLE 40 MG VIAL IV SCH (18:27)
[2018-09-30] MEDS ORDERED: VANCOMYCIN INJ 1,500 MG in SODIUM CHLORIDE 0.9% 500 ML IV ONE (18:30)
[2018-09-30 19:49] LABS: Apearance,Urine CLEAR (Clear); Bacteria,Urine Occasional /HPF (Few); Bilirubin,Urine Negative (Negative); Blood, Urine Negative (Negative); Glucose,Urine (UA) Negative (Negative); Hyaline Casts,Urine 7 /LPF (0-3); Ketones,Urine 5 mg/dL (Negative); Mucus,Urine Occasional /LPF (Occasional); Nitrite,Urine Negative (Negative); Protein,Urine Negative; RBC,Urine 1 /HPF (0-4); Urine Color Straw (Yellow); Urine Specific Gravity 1.008 (1.001-1.035); Urine Urobilinogen < 2.0 EU/DL (0.2-1.0); WBC,Urine <1 /HPF (0-6)
[2018-09-30] MEDS: ALBUTEROL/IPRATROPIUM 3 ML NEB RESP TX SCH (21:12)
[2018-09-30] MEDS: methylPREDNISolone SOD SUC 125 MG/2 ML VIAL IV SCH (21:57)
[2018-09-30] MEDS: LORazepam 1 MG TABLET PO PRN (22:06)
[2018-10-01] MEDS: ALBUTEROL/IPRATROPIUM 3 ML NEB RESP TX SCH ×4 (01:22→20:01)
[2018-10-01] MEDS: SODIUM CHLORIDE 0.9% 1,000 ML IV SCH ×2 (02:15→18:00)
[2018-10-01] MEDS: methylPREDNISolone SOD SUC 125 MG/2 ML VIAL IV SCH ×4 (04:12→20:29)
[2018-10-01] MEDS: MEROPENEM 1,000 MG in SODIUM CHLORIDE 0.9% 100 ML IV SCH ×3 (04:15→18:42)
[2018-10-01 04:21] LABS: Hematocrit 29.1 VOL% (42.0-52.0); Hemoglobin 8.7 GM/DL (14.0-18.0); Immature Granulocytes % 0.8 %; Immature Granulocytes Absolute 0.04 #; Lymphocytes # 0.1 10*3/uL (1.4-4.0); Lymphocytes % 1.2 % (21.2-54.2); Mean Corpuscular HGB Conc 29.9 GM/DL (32-36); Mean Corpuscular Hemoglobin 26 PG (27-34); Mean Corpuscular Volume 88.2 FL (87-102); Mean Platelet Volume 10.9 FL (9.6-12.0); Monocytes # 0.2 10*3/uL (0.11-0.8); Monocytes % 3.1 % (1.7-12.7); Neutrophils # 4.9 10*3/uL (1.4-7.4); Neutrophils % 94.9 % (38.7-73.9); Platelet Count 310 T/CUMM (130-400); Red Cell Distribution Width 23.2 % (9.3-17.3); White Blood Count 5.1 T/CUMM (4-12)
[2018-10-01 04:56] LABS: Albumin 1.7 G/DL (3.4-5.0); Calcium 8.1 MG/DL (8.5-10.1); Osmolality,Calculated 288.1 MOS/KG (273-304); Potassium 2.9 MMOL/L (3.5-5.1); Total Protein 6.3 G/DL (6.4-8.3)
[2018-10-01 05:15] LABS: Band Neutrophils 3 % (0-10); Lymphocytes 2 % (20-55); Segmented Neutrophils 93 % (50-85); Total Cells Counted 100
[2018-10-01 05:16] LABS: Hypochromasia 2+; Platelet Estimate Normal
[2018-10-01] MEDS: LORazepam 2 MG/1 ML VIAL IV PRN ×2 (05:24→23:37)
[2018-10-01] MEDS ORDERED: POTASSIUM CHLORIDE RIDER 10 MEQ in PREMIX 1 EACH IV PRN (07:56)
[2018-10-01] MEDS: VANCOMYCIN INJ 1,000 MG in SODIUM CHLORIDE 0.9% 250 ML IV SCH ×2 (08:20→20:25)
[2018-10-01] MEDS: POTASSIUM CHLORIDE RIDER 20 MEQ in PREMIX 1 EACH IV PRN ×3 (08:25→21:32)
[2018-10-01] MEDS ORDERED: FUROSEMIDE 40 MG/4 ML VIAL IV ONE (12:20)
[2018-10-01] MEDS: POTASSIUM CHLORIDE RIDER 10 MEQ in PREMIX 1 EACH IV PRN (14:47)
[2018-10-01] MEDS: MORPHINE 4 MG/1 ML VIAL IV PRN ×2 (16:38→20:25)
[2018-10-01] MEDS: PANTOPRAZOLE 40 MG VIAL IV SCH (18:40)
[2018-10-01] MEDS: LORazepam 1 MG TABLET PO PRN (20:25)
[2018-10-01] MEDS ORDERED: FUROSEMIDE 100 MG/10 ML VIAL IV ONE (23:02)
[2018-10-01] MEDS ORDERED: FUROSEMIDE 40 MG/4 ML VIAL ONE (23:04)
[2018-10-02] MEDS: MORPHINE 4 MG/1 ML VIAL IV PRN ×6 (00:02→22:59)
[2018-10-02] MEDS: ALBUTEROL/IPRATROPIUM 3 ML NEB RESP TX SCH ×4 (01:02→20:31)
[2018-10-02] MEDS: methylPREDNISolone SOD SUC 125 MG/2 ML VIAL IV SCH ×4 (03:15→20:40)
[2018-10-02] MEDS: MEROPENEM 1,000 MG in SODIUM CHLORIDE 0.9% 100 ML IV SCH ×3 (03:16→18:03)
[2018-10-02] MEDS: LORazepam 2 MG/1 ML VIAL IV PRN ×4 (03:18→20:40)
[2018-10-02 03:32] LABS: Basophils % 0.2 % (0.0-0.8); Hematocrit 30.6 VOL% (42.0-52.0); Hemoglobin 9.1 GM/DL (14.0-18.0); Immature Granulocytes % 0.4 %; Immature Granulocytes Absolute 0.08 #; Lymphocytes # 0.2 10*3/uL (1.4-4.0); Mean Corpuscular HGB Conc 29.7 GM/DL (32-36); Mean Corpuscular Hemoglobin 26 PG (27-34); Mean Corpuscular Volume 88.2 FL (87-102); Mean Platelet Volume 10.5 FL (9.6-12.0); Monocytes # 0.8 10*3/uL (0.11-0.8); Monocytes % 4.2 % (1.7-12.7); Neutrophils # 18.6 10*3/uL (1.4-7.4); Neutrophils % 94.2 % (38.7-73.9); Platelet Count 293 T/CUMM (130-400); Red Blood Count 3.47 MC/CUMM (3.8-5.5); Red Cell Distribution Width 22.8 % (9.3-17.3); White Blood Count 19.7 T/CUMM (4-12)
[2018-10-02 03:35] LABS: ABG Base Excess 21.2 MMOL/L (-2.5-2.5); ABG Oxygen Saturation 92.2 % (95-100); ABG PCO2 67.9 MM HG (35-48); ABG PH 7.467 (7.35-7.45); ABG PO2 66.4 MM HG (80-95); ABG TCO2 50.1 MMOL/L (23-27); Allen Test Positive; Pt O2 Delivery Device Other
[2018-10-02 04:03] LABS: Alanine Aminotransferase 11 U/L (16-61); Albumin 1.7 G/DL (3.4-5.0); Alkaline Phosphatase 86 U/L (45-117); Aspartate Amino Transferase 14 U/L (0-37); Bilirubin,Total < 0.39 MG/DL (0.2-1.0); Blood Urea Nitrogen 14 MG/DL (7-18); Calcium 8.4 MG/DL (8.5-10.1); Glucose 157 MG/DL (74-106); Osmolality,Calculated 284.3 MOS/KG (273-304); Potassium 3.8 MMOL/L (3.5-5.1); Sodium 141 MMOL/L (136-145); Total Protein 6.3 G/DL (6.4-8.3)
[2018-10-02 05:34] LABS: Platelet Estimate Normal; Polychromasia Few; Segmented Neutrophils 99 % (50-85); Total Cells Counted 100
[2018-10-02] MEDS: SODIUM CHLORIDE 0.9% 1,000 ML IV SCH (07:54)
[2018-10-02] MEDS: POTASSIUM CHLORIDE RIDER 20 MEQ in PREMIX 1 EACH IV PRN (08:00)
[2018-10-02] MEDS: FUROSEMIDE 40 MG/4 ML VIAL IV SCH ×2 (08:19→15:47)
[2018-10-02] MEDS ORDERED: fentaNYL 50 MCG/HR PATCH TRANSDERM SCH (09:00)
[2018-10-02] MEDS: VANCOMYCIN INJ 1,000 MG in SODIUM CHLORIDE 0.9% 250 ML IV SCH ×2 (09:17→20:41)
[2018-10-02] MEDS: PANTOPRAZOLE 40 MG VIAL IV SCH (18:00)
[2018-10-03] MEDS: ALBUTEROL/IPRATROPIUM 3 ML NEB RESP TX SCH ×4 (01:37→19:33)
[2018-10-03] MEDS: LORazepam 2 MG/1 ML VIAL IV PRN (02:43)
[2018-10-03] MEDS: MEROPENEM 1,000 MG in SODIUM CHLORIDE 0.9% 100 ML IV SCH ×3 (02:47→18:37)
[2018-10-03] MEDS: methylPREDNISolone SOD SUC 125 MG/2 ML VIAL IV SCH ×4 (04:08→20:32)
[2018-10-03] MEDS: MORPHINE 4 MG/1 ML VIAL IV PRN ×2 (04:10→09:00)
[2018-10-03] MEDS: VANCOMYCIN INJ 1,000 MG in SODIUM CHLORIDE 0.9% 250 ML IV SCH ×3 (04:12→20:32)
[2018-10-03 08:13] LABS: Basophils % 0.1 % (0.0-0.8); Hematocrit 32.7 VOL% (42.0-52.0); Hemoglobin 9.9 GM/DL (14.0-18.0); Immature Granulocytes Absolute 0.22 #; Lymphocytes # 0.3 10*3/uL (1.4-4.0); Lymphocytes % 1.2 % (21.2-54.2); Mean Corpuscular HGB Conc 30.3 GM/DL (32-36); Mean Corpuscular Hemoglobin 27 PG (27-34); Mean Corpuscular Volume 88.6 FL (87-102); Mean Platelet Volume 10.6 FL (9.6-12.0); Monocytes # 0.7 10*3/uL (0.11-0.8); Monocytes % 3.1 % (1.7-12.7); Neutrophils # 20.3 10*3/uL (1.4-7.4); Neutrophils % 94.6 % (38.7-73.9); Platelet Count 258 T/CUMM (130-400); Red Blood Count 3.69 MC/CUMM (3.8-5.5); Red Cell Distribution Width 22.4 % (9.3-17.3); White Blood Count 21.5 T/CUMM (4-12)
[2018-10-03 08:30] LABS: Hypochromasia 1+; Platelet Estimate Adequate; Segmented Neutrophils 98 % (50-85); Total Cells Counted 100
[2018-10-03 08:45] LABS: Albumin 1.8 G/DL (3.4-5.0); Bilirubin,Total 0.5 MG/DL (0.2-1.0); Calcium 8.4 MG/DL (8.5-10.1); Osmolality,Calculated 288.3 MOS/KG (273-304); Potassium 3.9 MMOL/L (3.5-5.1); Total Protein 6.1 G/DL (6.4-8.3)
[2018-10-03] MEDS: FUROSEMIDE 40 MG/4 ML VIAL IV SCH ×2 (08:54→17:10)
[2018-10-03] MEDS: POTASSIUM CHLORIDE RIDER 20 MEQ in PREMIX 1 EACH IV PRN (10:50)
[2018-10-03] MEDS: MORPHINE 4 MG/1 ML VIAL IV SCH ×3 (12:58→20:33)
[2018-10-03] MEDS: PANTOPRAZOLE 40 MG VIAL IV SCH (18:36)
[2018-10-03] MEDS: MENTHOL/ZINC OXIDE OINT 71 GM JAR TOP SCH (22:55)
[2018-10-04] MEDS: MORPHINE 4 MG/1 ML VIAL IV SCH ×7 (00:02→23:58)
[2018-10-04] MEDS: ALBUTEROL/IPRATROPIUM 3 ML NEB RESP TX SCH ×4 (01:05→19:42)
[2018-10-04] MEDS: MEROPENEM 1,000 MG in SODIUM CHLORIDE 0.9% 100 ML IV SCH ×3 (02:29→18:46)
[2018-10-04] MEDS: methylPREDNISolone SOD SUC 125 MG/2 ML VIAL IV SCH ×4 (02:30→20:57)
[2018-10-04] MEDS: VANCOMYCIN INJ 1,000 MG in SODIUM CHLORIDE 0.9% 250 ML IV SCH ×2 (04:38→12:53)
[2018-10-04 05:24] LABS: Basophils % 0.1 % (0.0-0.8); Hematocrit 32.2 VOL% (42.0-52.0); Hemoglobin 9.6 GM/DL (14.0-18.0); Immature Granulocytes % 2.2 %; Lymphocytes # 0.2 10*3/uL (1.4-4.0); Lymphocytes % 0.7 % (21.2-54.2); Mean Corpuscular HGB Conc 29.8 GM/DL (32-36); Mean Corpuscular Hemoglobin 26 PG (27-34); Monocytes # 0.7 10*3/uL (0.11-0.8); Monocytes % 2.9 % (1.7-12.7); Neutrophils # 21.3 10*3/uL (1.4-7.4); Neutrophils % 94.1 % (38.7-73.9); Platelet Count 264 T/CUMM (130-400); Red Blood Count 3.66 MC/CUMM (3.8-5.5); Red Cell Distribution Width 21.9 % (9.3-17.3); White Blood Count 22.6 T/CUMM (4-12)
[2018-10-04 05:43] LABS: Calcium 8.3 MG/DL (8.5-10.1); Osmolality,Calculated 289.4 MOS/KG (273-304); Potassium 3.5 MMOL/L (3.5-5.1)
[2018-10-04 05:47] LABS: Albumin 1.8 G/DL (3.4-5.0); Bilirubin,Total 0.5 MG/DL (0.2-1.0); Calcium 8.4 MG/DL (8.5-10.1); Osmolality,Calculated 289.4 MOS/KG (273-304); Potassium 3.4 MMOL/L (3.5-5.1); Total Protein 6.1 G/DL (6.4-8.3)
[2018-10-04 05:57] LABS: Hypochromasia 1+; Ovalocytes Slight; Platelet Estimate Adequate; Segmented Neutrophils 97 % (50-85); Total Cells Counted 100
[2018-10-04] MEDS: FUROSEMIDE 40 MG/4 ML VIAL IV SCH ×2 (09:32→16:41)
[2018-10-04] MEDS: MENTHOL/ZINC OXIDE OINT 71 GM JAR TOP SCH ×2 (10:29→21:03)
[2018-10-04] MEDS: fentaNYL 50 MCG/HR PATCH TRANSDERM SCH (13:37)
[2018-10-04] MEDS: POTASSIUM CHLORIDE RIDER 20 MEQ in PREMIX 1 EACH IV PRN (16:43)
[2018-10-04] MEDS: PANTOPRAZOLE 40 MG VIAL IV SCH (18:46)
[2018-10-04] MEDS: MIRTAZAPINE 15 MG TABLET PO SCH (20:57)
[2018-10-04] MEDS: POTASSIUM CHLORIDE RIDER 10 MEQ in PREMIX 1 EACH IV PRN (21:40)
[2018-10-05] MEDS: MEROPENEM 1,000 MG in SODIUM CHLORIDE 0.9% 100 ML IV SCH ×3 (01:46→18:31)
[2018-10-05] MEDS: methylPREDNISolone SOD SUC 125 MG/2 ML VIAL IV SCH ×4 (03:33→21:11)
[2018-10-05] MEDS: MORPHINE 4 MG/1 ML VIAL IV SCH ×5 (03:51→21:12)
[2018-10-05] MEDS: ALBUTEROL/IPRATROPIUM 3 ML NEB RESP TX SCH ×4 (07:27→19:38)
[2018-10-05 07:53] LABS: Basophils # 0.1 10*3/uL (0.0-0.2); Basophils % 0.3 % (0.0-0.8); Hematocrit 37.1 VOL% (42.0-52.0); Hemoglobin 11.1 GM/DL (14.0-18.0); Immature Granulocytes % 1.3 %; Immature Granulocytes Absolute 0.25 #; Lymphocytes # 0.3 10*3/uL (1.4-4.0); Lymphocytes % 1.5 % (21.2-54.2); Mean Corpuscular HGB Conc 29.9 GM/DL (32-36); Mean Corpuscular Hemoglobin 26 PG (27-34); Mean Corpuscular Volume 86.9 FL (87-102); Mean Platelet Volume 10.4 FL (9.6-12.0); Monocytes # 0.7 10*3/uL (0.11-0.8); Monocytes % 3.8 % (1.7-12.7); Neutrophils % 93.1 % (38.7-73.9); Platelet Count 276 T/CUMM (130-400); Red Blood Count 4.27 MC/CUMM (3.8-5.5); Red Cell Distribution Width 22.1 % (9.3-17.3); White Blood Count 19.4 T/CUMM (4-12)
[2018-10-05 08:24] LABS: Anisocytosis 2+; Band Neutrophils 2 % (0-10); Basophilic Stippling Slight; Platelet Estimate Normal; Segmented Neutrophils 94 % (50-85); Total Cells Counted 100
[2018-10-05 08:35] LABS: Albumin 1.9 G/DL (3.4-5.0); Bilirubin,Total 0.6 MG/DL (0.2-1.0); Calcium 8.6 MG/DL (8.5-10.1); Osmolality,Calculated 288.5 MOS/KG (273-304); Potassium 3.6 MMOL/L (3.5-5.1)
[2018-10-05] MEDS: FUROSEMIDE 40 MG/4 ML VIAL IV SCH ×2 (08:48→16:47)
[2018-10-05] MEDS: MENTHOL/ZINC OXIDE OINT 71 GM JAR TOP SCH ×2 (08:49→21:16)
[2018-10-05] MEDS: PANTOPRAZOLE 40 MG VIAL IV SCH (18:31)
[2018-10-05] MEDS: MIRTAZAPINE 15 MG TABLET PO SCH (21:10)
[2018-10-06] MEDS: MORPHINE 4 MG/1 ML VIAL IV SCH ×6 (00:10→20:55)
[2018-10-06] MEDS: ALBUTEROL/IPRATROPIUM 3 ML NEB RESP TX SCH ×4 (01:27→19:20)
[2018-10-06] MEDS: MEROPENEM 1,000 MG in SODIUM CHLORIDE 0.9% 100 ML IV SCH ×3 (02:38→18:05)
[2018-10-06] MEDS: methylPREDNISolone SOD SUC 125 MG/2 ML VIAL IV SCH ×3 (02:38→20:54)
[2018-10-06] MEDS: FUROSEMIDE 40 MG/4 ML VIAL IV SCH ×2 (08:57→16:31)
[2018-10-06] MEDS: MENTHOL/ZINC OXIDE OINT 71 GM JAR TOP SCH ×2 (09:01→20:55)
[2018-10-06] MEDS: PANTOPRAZOLE 40 MG VIAL IV SCH (18:05)
[2018-10-06] MEDS: MIRTAZAPINE 15 MG TABLET PO SCH (20:55)
[2018-10-07] MEDS: MORPHINE 4 MG/1 ML VIAL IV SCH ×6 (00:57→20:04)
[2018-10-07] MEDS: MEROPENEM 1,000 MG in SODIUM CHLORIDE 0.9% 100 ML IV SCH ×3 (00:58→18:00)
[2018-10-07] MEDS: ALBUTEROL/IPRATROPIUM 3 ML NEB RESP TX SCH ×4 (01:13→19:08)
[2018-10-07] MEDS: methylPREDNISolone SOD SUC 125 MG/2 ML VIAL IV SCH ×3 (03:31→20:10)
[2018-10-07] MEDS: FUROSEMIDE 40 MG/4 ML VIAL IV SCH ×2 (08:57→16:03)
[2018-10-07] MEDS: fentaNYL 50 MCG/HR PATCH TRANSDERM SCH (09:02)
[2018-10-07] MEDS: MENTHOL/ZINC OXIDE OINT 71 GM JAR TOP SCH ×2 (09:06→21:21)
[2018-10-07] MEDS: PANTOPRAZOLE 40 MG VIAL IV SCH (17:58)
[2018-10-07] MEDS: MIRTAZAPINE 15 MG TABLET PO SCH (21:21)
[2018-10-07] MEDS: POTASSIUM CHLORIDE RIDER 20 MEQ in PREMIX 1 EACH IV PRN (21:37)
[2018-10-08] MEDS: MORPHINE 4 MG/1 ML VIAL IV SCH ×6 (00:12→20:00)
[2018-10-08] MEDS: ALBUTEROL/IPRATROPIUM 3 ML NEB RESP TX SCH ×4 (00:40→19:17)
[2018-10-08] MEDS: MEROPENEM 1,000 MG in SODIUM CHLORIDE 0.9% 100 ML IV SCH ×2 (02:13→10:08)
[2018-10-08] MEDS: methylPREDNISolone SOD SUC 125 MG/2 ML VIAL IV SCH ×3 (04:12→19:58)
[2018-10-08 04:26] LABS: Basophils # 0.1 10*3/uL (0.0-0.2); Basophils % 0.5 % (0.0-0.8); Hematocrit 35.5 VOL% (42.0-52.0); Hemoglobin 10.9 GM/DL (14.0-18.0); Immature Granulocytes % 6.4 %; Immature Granulocytes Absolute 0.96 #; Lymphocytes # 0.4 10*3/uL (1.4-4.0); Lymphocytes % 2.5 % (21.2-54.2); Mean Corpuscular HGB Conc 30.7 GM/DL (32-36); Mean Corpuscular Hemoglobin 27 PG (27-34); Mean Corpuscular Volume 86.6 FL (87-102); Mean Platelet Volume 11.3 FL (9.6-12.0); Monocytes # 0.8 10*3/uL (0.11-0.8); Monocytes % 5.4 % (1.7-12.7); Neutrophils # 12.7 10*3/uL (1.4-7.4); Neutrophils % 85.2 % (38.7-73.9); Platelet Count 257 T/CUMM (130-400); Red Cell Distribution Width 22.5 % (9.3-17.3)
[2018-10-08 04:37] LABS: Calcium 8.1 MG/DL (8.5-10.1); Osmolality,Calculated 299.5 MOS/KG (273-304); Potassium 3.6 MMOL/L (3.5-5.1)
[2018-10-08 05:05] LABS: Anisocytosis 1+; Band Neutrophils 1 % (0-10); Lymphocytes 2 % (20-55); Myelocytes 2 %; Segmented Neutrophils 92 % (50-85); Total Cells Counted 100
[2018-10-08 05:06] LABS: Hypochromasia 1+
[2018-10-08 05:07] LABS: Acanthocytes Few; Platelet Estimate Adequate
[2018-10-08] MEDS: POTASSIUM CHLORIDE RIDER 20 MEQ in PREMIX 1 EACH IV PRN (06:44)
[2018-10-08] MEDS: FUROSEMIDE 40 MG/4 ML VIAL IV SCH ×2 (09:31→16:57)
[2018-10-08] MEDS: POLYETHYLENE GLYCOL POWDER 17 GM PACK PO SCH (10:09)
[2018-10-08] MEDS: MENTHOL/ZINC OXIDE OINT 71 GM JAR TOP SCH ×2 (17:03→20:02)
[2018-10-08] MEDS: PANTOPRAZOLE 40 MG VIAL IV SCH (18:31)
[2018-10-08] MEDS: MIRTAZAPINE 15 MG TABLET PO SCH (20:02)
[2018-10-09] MEDS: MORPHINE 4 MG/1 ML VIAL IV SCH ×7 (00:06→23:45)
[2018-10-09] MEDS: ALBUTEROL/IPRATROPIUM 3 ML NEB RESP TX SCH ×4 (00:33→19:59)
[2018-10-09 03:12] LABS: Basophils # 0.1 10*3/uL (0.0-0.2); Basophils % 0.5 % (0.0-0.8); Hematocrit 36.7 VOL% (42.0-52.0); Hemoglobin 11.1 GM/DL (14.0-18.0); Immature Granulocytes % 5.5 %; Immature Granulocytes Absolute 0.83 #; Lymphocytes # 0.2 10*3/uL (1.4-4.0); Lymphocytes % 1.5 % (21.2-54.2); Mean Corpuscular HGB Conc 30.2 GM/DL (32-36); Mean Corpuscular Hemoglobin 27 PG (27-34); Mean Corpuscular Volume 87.8 FL (87-102); Mean Platelet Volume 11.2 FL (9.6-12.0); Monocytes # 0.8 10*3/uL (0.11-0.8); Monocytes % 5.1 % (1.7-12.7); Neutrophils # 13.3 10*3/uL (1.4-7.4); Neutrophils % 87.4 % (38.7-73.9); Platelet Count 258 T/CUMM (130-400); Red Blood Count 4.18 MC/CUMM (3.8-5.5); Red Cell Distribution Width 22.6 % (9.3-17.3); White Blood Count 15.2 T/CUMM (4-12)
[2018-10-09] MEDS: INSULIN REGULAR 100 UNIT/ML SUBCUT SCH ×5 (04:03→23:47)
[2018-10-09] MEDS: methylPREDNISolone SOD SUC 125 MG/2 ML VIAL IV SCH ×3 (04:05→20:55)
[2018-10-09 04:21] LABS: Lymphocytes 4 % (20-55); Segmented Neutrophils 92 % (50-85)
[2018-10-09 04:22] LABS: Hypochromasia Slight; Platelet Estimate Normal
[2018-10-09 04:23] LABS: Polychromasia Few; Total Cells Counted 100
[2018-10-09 04:33] LABS: Potassium 3.5 MMOL/L (3.5-5.1)
[2018-10-09 04:35] LABS: Calcium 7.8 MG/DL (8.5-10.1)
[2018-10-09 04:41] LABS: Osmolality,Calculated 313.8 MOS/KG (273-304)
[2018-10-09] MEDS: POTASSIUM CHLORIDE RIDER 20 MEQ in PREMIX 1 EACH IV PRN (06:15)
[2018-10-09] MEDS ORDERED: INSULIN REGULAR 100 UNIT/ML SUBCUT ONE (06:21)
[2018-10-09] MEDS: POLYETHYLENE GLYCOL POWDER 17 GM PACK PO SCH (09:31)
[2018-10-09] MEDS: FUROSEMIDE 40 MG/4 ML VIAL IV SCH ×2 (09:31→16:41)
[2018-10-09] MEDS: MENTHOL/ZINC OXIDE OINT 71 GM JAR TOP SCH ×2 (13:02→20:58)
[2018-10-09] MEDS: PANTOPRAZOLE 40 MG VIAL IV SCH (18:18)
[2018-10-09] MEDS: INSULIN GLARGINE 100 UNIT/ML SUBCUT SCH (20:53)
[2018-10-09] MEDS: MIRTAZAPINE 15 MG TABLET PO SCH (20:53)
[2018-10-10] MEDS: ALBUTEROL/IPRATROPIUM 3 ML NEB RESP TX SCH ×4 (00:19→19:32)
[2018-10-10] MEDS: methylPREDNISolone SOD SUC 125 MG/2 ML VIAL IV SCH ×3 (04:37→21:05)
[2018-10-10] MEDS: MORPHINE 4 MG/1 ML VIAL IV SCH ×5 (04:37→21:06)
[2018-10-10 05:46] LABS: Basophils # 0.1 10*3/uL (0.0-0.2); Basophils % 0.3 % (0.0-0.8); Hemoglobin 11.5 GM/DL (14.0-18.0); Immature Granulocytes % 4.6 %; Immature Granulocytes Absolute 1.05 #; Lymphocytes # 0.4 10*3/uL (1.4-4.0); Lymphocytes % 1.8 % (21.2-54.2); Mean Corpuscular HGB Conc 30.3 GM/DL (32-36); Mean Corpuscular Hemoglobin 26 PG (27-34); Mean Platelet Volume 11.4 FL (9.6-12.0); Monocytes # 0.7 10*3/uL (0.11-0.8); Monocytes % 3.2 % (1.7-12.7); NRBC # 0.02 10*3/uL; Neutrophils # 20.7 10*3/uL (1.4-7.4); Neutrophils % 90.1 % (38.7-73.9); Platelet Count 259 T/CUMM (130-400); Red Blood Count 4.37 MC/CUMM (3.8-5.5); Red Cell Distribution Width 22.5 % (9.3-17.3)
[2018-10-10 06:07] LABS: Calcium 8.1 MG/DL (8.5-10.1); Osmolality,Calculated 294.4 MOS/KG (273-304); Potassium 3.7 MMOL/L (3.5-5.1)
[2018-10-10] MEDS: INSULIN REGULAR 100 UNIT/ML SUBCUT SCH ×3 (07:05→18:09)
[2018-10-10] MEDS: POLYETHYLENE GLYCOL POWDER 17 GM PACK PO SCH (09:12)
[2018-10-10] MEDS: fentaNYL 50 MCG/HR PATCH TRANSDERM SCH (09:12)
[2018-10-10] MEDS: FUROSEMIDE 40 MG/4 ML VIAL IV SCH ×2 (09:13→16:33)
[2018-10-10] MEDS: MENTHOL/ZINC OXIDE OINT 71 GM JAR TOP SCH ×2 (09:14→21:04)
[2018-10-10 09:16] LABS: Lymphocytes 5 % (20-55); Platelet Estimate Normal; Polychromasia Slight; Segmented Neutrophils 94 % (50-85); Total Cells Counted 100
[2018-10-10] MEDS: DORNASE ALFA 2.5 MG/2.5 ML VIAL RESP TX SCH ×2 (12:25→19:41)
[2018-10-10] MEDS: PANTOPRAZOLE 40 MG VIAL IV SCH (18:09)
[2018-10-10] MEDS: MIRTAZAPINE 15 MG TABLET PO SCH (21:05)
[2018-10-10] MEDS: INSULIN GLARGINE 100 UNIT/ML SUBCUT SCH (21:09)
[2018-10-11] MEDS: ALBUTEROL/IPRATROPIUM 3 ML NEB RESP TX SCH ×4 (00:40→19:46)
[2018-10-11] MEDS: INSULIN REGULAR 100 UNIT/ML SUBCUT SCH ×5 (00:59→23:50)
[2018-10-11] MEDS: MORPHINE 4 MG/1 ML VIAL IV SCH ×7 (00:59→23:51)
[2018-10-11] MEDS: methylPREDNISolone SOD SUC 125 MG/2 ML VIAL IV SCH ×3 (03:42→20:41)
[2018-10-11] MEDS: DORNASE ALFA 2.5 MG/2.5 ML VIAL RESP TX SCH ×2 (06:55→19:46)
[2018-10-11] MEDS: FUROSEMIDE 40 MG/4 ML VIAL IV SCH ×2 (09:13→17:52)
[2018-10-11] MEDS: POLYETHYLENE GLYCOL POWDER 17 GM PACK PO SCH (09:13)
[2018-10-11] MEDS: MENTHOL/ZINC OXIDE OINT 71 GM JAR TOP SCH ×2 (09:19→20:51)
[2018-10-11] MEDS: PANTOPRAZOLE 40 MG VIAL IV SCH (17:53)
[2018-10-11] MEDS: MIRTAZAPINE 15 MG TABLET PO SCH (20:40)
[2018-10-11] MEDS: POTASSIUM CHLORIDE RIDER 20 MEQ in PREMIX 1 EACH IV PRN (20:45)
[2018-10-11] MEDS: INSULIN GLARGINE 100 UNIT/ML SUBCUT SCH (20:59)
[2018-10-12] MEDS: ALBUTEROL/IPRATROPIUM 3 ML NEB RESP TX SCH ×5 (01:14→23:58)
[2018-10-12] MEDS: MORPHINE 4 MG/1 ML VIAL IV SCH ×6 (04:07→23:40)
[2018-10-12] MEDS: methylPREDNISolone SOD SUC 125 MG/2 ML VIAL IV SCH (04:10)
[2018-10-12] MEDS: INSULIN REGULAR 100 UNIT/ML SUBCUT SCH ×4 (06:29→23:39)
[2018-10-12] MEDS: DORNASE ALFA 2.5 MG/2.5 ML VIAL RESP TX SCH ×2 (07:17→19:18)
[2018-10-12] MEDS: FUROSEMIDE 40 MG/4 ML VIAL IV SCH ×2 (08:58→18:14)
[2018-10-12] MEDS: MENTHOL/ZINC OXIDE OINT 71 GM JAR TOP SCH ×2 (09:00→20:42)
[2018-10-12] MEDS: POLYETHYLENE GLYCOL POWDER 17 GM PACK PO SCH (09:00)
[2018-10-12] MEDS: PANTOPRAZOLE 40 MG VIAL IV SCH (18:07)
[2018-10-12] MEDS: INSULIN GLARGINE 100 UNIT/ML SUBCUT SCH (20:41)
[2018-10-12] MEDS: MIRTAZAPINE 15 MG TABLET PO SCH (20:41)
[2018-10-13] MEDS: INSULIN REGULAR 100 UNIT/ML SUBCUT SCH ×3 (05:55→20:33)
[2018-10-13] MEDS ORDERED: methylPREDNISolone SOD SUC 40 MG/1 ML VIAL IV SCH (06:00)
[2018-10-13] MEDS: MORPHINE 4 MG/1 ML VIAL IV SCH ×5 (06:17→20:32)
[2018-10-13] MEDS ORDERED: GLYCOPYRROLATE 0.4 MG/2 ML VIAL IM ONE (07:30)
[2018-10-13] MEDS ORDERED: PROMETHAZINE 25 MG/1 ML VIAL IM ONE (07:30)
[2018-10-13] MEDS ORDERED: MIDAZOLAM 2 MG/2 ML VIAL IV ONE ×3 (07:30→08:00)
[2018-10-13] MEDS ORDERED: LIDOCAINE 2% VISCOUS 100 ML BOTTLE SWISH/SPIT ONE (07:30)
[2018-10-13] MEDS ORDERED: LIDOCAINE 1% 20 ML VIAL MISC INJ ONE (07:30)
[2018-10-13] MEDS ORDERED: MEPERIDINE 50 MG/1 ML VIAL IM ONE (07:30)
[2018-10-13] MEDS ORDERED: LIDOCAINE 2% 20 ML VIAL RESP TX ONE (07:30)
[2018-10-13] MEDS: DORNASE ALFA 2.5 MG/2.5 ML VIAL RESP TX SCH (07:34)
[2018-10-13] MEDS: ALBUTEROL/IPRATROPIUM 3 ML NEB RESP TX SCH ×3 (07:34→19:31)
[2018-10-13] MEDS: POLYETHYLENE GLYCOL POWDER 17 GM PACK PO SCH ×2 (07:55→16:21)
[2018-10-13] MEDS: MENTHOL/ZINC OXIDE OINT 71 GM JAR TOP SCH ×2 (08:27→20:34)
[2018-10-13] MEDS: fentaNYL 50 MCG/HR PATCH TRANSDERM SCH (12:39)
[2018-10-13] MEDS: predniSONE 20 MG TABLET PO SCH (12:39)
[2018-10-13] MEDS: FUROSEMIDE 20 MG TABLET PO SCH ×2 (12:39→16:13)
[2018-10-13] MEDS: PANTOPRAZOLE 40 MG TABLET PO SCH (12:39)
[2018-10-13] MEDS: MIRTAZAPINE 15 MG TABLET PO SCH (20:32)
[2018-10-13] MEDS: INSULIN GLARGINE 100 UNIT/ML SUBCUT SCH (20:33)
[2018-10-14] MEDS: ALBUTEROL/IPRATROPIUM 3 ML NEB RESP TX SCH ×4 (01:06→19:04)
[2018-10-14] MEDS: MORPHINE 4 MG/1 ML VIAL IV SCH ×6 (01:06→20:46)
[2018-10-14] MEDS: INSULIN REGULAR 100 UNIT/ML SUBCUT SCH ×4 (01:20→18:10)
[2018-10-14] MEDS: FUROSEMIDE 20 MG TABLET PO SCH ×2 (08:26→16:27)
[2018-10-14] MEDS: PANTOPRAZOLE 40 MG TABLET PO SCH (08:26)
[2018-10-14] MEDS: POLYETHYLENE GLYCOL POWDER 17 GM PACK PO SCH (08:26)
[2018-10-14] MEDS: predniSONE 20 MG TABLET PO SCH (08:27)
[2018-10-14] MEDS: MENTHOL/ZINC OXIDE OINT 71 GM JAR TOP SCH ×2 (08:33→20:47)
[2018-10-14] MEDS: fentaNYL 50 MCG/HR PATCH TRANSDERM SCH (17:20)
[2018-10-14] MEDS: MIRTAZAPINE 15 MG TABLET PO SCH (20:45)
[2018-10-14] MEDS: INSULIN GLARGINE 100 UNIT/ML SUBCUT SCH (20:45)
[2018-10-15] MEDS: MORPHINE 4 MG/1 ML VIAL IV SCH ×7 (00:30→23:40)
[2018-10-15] MEDS: ALBUTEROL/IPRATROPIUM 3 ML NEB RESP TX SCH ×4 (00:38→19:58)
[2018-10-15] MEDS: INSULIN REGULAR 100 UNIT/ML SUBCUT SCH ×5 (00:46→23:52)
[2018-10-15 05:22] LABS: Basophils % 0.1 % (0.0-0.8); Eosinophils # 0.1 10*3/uL (0.0-0.87); Eosinophils % 0.7 % (0.00-10.9); Hematocrit 34.8 VOL% (42.0-52.0); Hemoglobin 10.4 GM/DL (14.0-18.0); Immature Granulocytes % 0.8 %; Immature Granulocytes Absolute 0.14 #; Lymphocytes # 0.3 10*3/uL (1.4-4.0); Mean Corpuscular HGB Conc 29.9 GM/DL (32-36); Mean Corpuscular Hemoglobin 27 PG (27-34); Mean Corpuscular Volume 89.7 FL (87-102); Mean Platelet Volume 11.3 FL (9.6-12.0); Monocytes # 0.8 10*3/uL (0.11-0.8); Monocytes % 4.5 % (1.7-12.7); Neutrophils # 15.6 10*3/uL (1.4-7.4); Neutrophils % 91.9 % (38.7-73.9); Platelet Count 200 T/CUMM (130-400); Red Blood Count 3.88 MC/CUMM (3.8-5.5); Red Cell Distribution Width 23.7 % (9.3-17.3)
[2018-10-15 05:47] LABS: Calcium 7.6 MG/DL (8.5-10.1); Osmolality,Calculated 279.4 MOS/KG (273-304); Potassium 2.9 MMOL/L (3.5-5.1)
[2018-10-15 06:24] LABS: Eosinophils 2 % (0-10); Hypochromasia 1+; Lymphocytes 2 % (20-55); Microcytosis 1+; Segmented Neutrophils 95 % (50-85); Total Cells Counted 100
[2018-10-15 06:25] LABS: Platelet Estimate Normal
[2018-10-15] MEDS: INSULIN NPH 100 UNIT/ML SUBCUT SCH (08:50)
[2018-10-15] MEDS: POTASSIUM CHLORIDE 20 MEQ/15 ML UDCUP PO SCH ×5 (10:47→23:40)
[2018-10-15] MEDS: FUROSEMIDE 20 MG TABLET PO SCH ×2 (10:50→15:55)
[2018-10-15] MEDS: POLYETHYLENE GLYCOL POWDER 17 GM PACK PO SCH (10:50)
[2018-10-15] MEDS: PANTOPRAZOLE 40 MG TABLET PO SCH (10:50)
[2018-10-15] MEDS: predniSONE 20 MG TABLET PO SCH (10:50)
[2018-10-15] MEDS: MENTHOL/ZINC OXIDE OINT 71 GM JAR TOP SCH ×2 (10:54→23:42)
[2018-10-15] MEDS: LEVOFLOXACIN INJ 500 MG in PREMIX 1 EACH IV SCH (13:40)
[2018-10-15] MEDS: ALUMINUM/MAGNES/SIMETH MAX STR 30 ML UDCUP PO PRN (21:08)
[2018-10-15] MEDS: MIRTAZAPINE 15 MG TABLET PO SCH (23:52)
[2018-10-16] MEDS: ALBUTEROL/IPRATROPIUM 3 ML NEB RESP TX SCH ×4 (01:06→19:50)
[2018-10-16] MEDS: MORPHINE 4 MG/1 ML VIAL IV SCH ×5 (03:59→20:45)
[2018-10-16 05:50] LABS: Calcium 7.7 MG/DL (8.5-10.1); Osmolality,Calculated 279.4 MOS/KG (273-304); Potassium 4.4 MMOL/L (3.5-5.1)
[2018-10-16] MEDS: INSULIN REGULAR 100 UNIT/ML SUBCUT SCH ×3 (07:55→18:09)
[2018-10-16] MEDS: INSULIN NPH 100 UNIT/ML SUBCUT SCH (07:56)
[2018-10-16] MEDS: FUROSEMIDE 20 MG TABLET PO SCH ×2 (09:22→16:44)
[2018-10-16] MEDS: PANTOPRAZOLE 40 MG TABLET PO SCH (09:22)
[2018-10-16] MEDS: predniSONE 20 MG TABLET PO SCH (09:22)
[2018-10-16] MEDS: POLYETHYLENE GLYCOL POWDER 17 GM PACK PO SCH (09:23)
[2018-10-16] MEDS: MENTHOL/ZINC OXIDE OINT 71 GM JAR TOP SCH ×2 (09:30→20:46)
[2018-10-16] MEDS: ALUMINUM/MAGNES/SIMETH MAX STR 30 ML UDCUP PO PRN ×2 (11:46→18:09)
[2018-10-16] MEDS: LEVOFLOXACIN INJ 500 MG in PREMIX 1 EACH IV SCH (14:17)
[2018-10-16] MEDS: MIRTAZAPINE 15 MG TABLET PO SCH (20:45)
[2018-10-17] MEDS: ALBUTEROL/IPRATROPIUM 3 ML NEB RESP TX SCH ×4 (00:08→19:43)
[2018-10-17] MEDS: INSULIN REGULAR 100 UNIT/ML SUBCUT SCH ×4 (00:29→18:43)
[2018-10-17] MEDS: MORPHINE 4 MG/1 ML VIAL IV SCH ×7 (00:29→23:55)
[2018-10-17] MEDS: fentaNYL 50 MCG/HR PATCH TRANSDERM SCH (09:11)
[2018-10-17] MEDS: predniSONE 20 MG TABLET PO SCH (09:11)
[2018-10-17] MEDS: POLYETHYLENE GLYCOL POWDER 17 GM PACK PO SCH (09:11)
[2018-10-17] MEDS: PANTOPRAZOLE 40 MG TABLET PO SCH (09:11)
[2018-10-17] MEDS: FUROSEMIDE 20 MG TABLET PO SCH ×2 (09:11→15:37)
[2018-10-17] MEDS: MENTHOL/ZINC OXIDE OINT 71 GM JAR TOP SCH ×2 (09:12→22:07)
[2018-10-17] MEDS: INSULIN NPH 100 UNIT/ML SUBCUT SCH (09:12)
[2018-10-17] MEDS: LEVOFLOXACIN INJ 500 MG in PREMIX 1 EACH IV SCH (13:05)
[2018-10-17] MEDS: ALUMINUM/MAGNES/SIMETH MAX STR 30 ML UDCUP PO PRN (15:51)
[2018-10-17] MEDS: MIRTAZAPINE 15 MG TABLET PO SCH (20:45)
[2018-10-18] MEDS: ALBUTEROL/IPRATROPIUM 3 ML NEB RESP TX SCH ×4 (00:19→19:20)
[2018-10-18] MEDS: INSULIN REGULAR 100 UNIT/ML SUBCUT SCH ×4 (01:19→18:38)
[2018-10-18] MEDS: MORPHINE 4 MG/1 ML VIAL IV SCH ×5 (06:22→20:40)
[2018-10-18] MEDS: INSULIN NPH 100 UNIT/ML SUBCUT SCH (08:31)
[2018-10-18] MEDS: PANTOPRAZOLE 40 MG TABLET PO SCH (10:05)
[2018-10-18] MEDS: POLYETHYLENE GLYCOL POWDER 17 GM PACK PO SCH (10:05)
[2018-10-18] MEDS: MENTHOL/ZINC OXIDE OINT 71 GM JAR TOP SCH ×2 (10:05→22:16)
[2018-10-18] MEDS: FUROSEMIDE 20 MG TABLET PO SCH ×2 (10:05→16:42)
[2018-10-18] MEDS: predniSONE 20 MG TABLET PO SCH (10:05)
[2018-10-18] MEDS: LEVOFLOXACIN INJ 500 MG in PREMIX 1 EACH IV SCH (13:42)
[2018-10-18] MEDS: MIRTAZAPINE 15 MG TABLET PO SCH (20:39)
[2018-10-19] MEDS: MORPHINE 4 MG/1 ML VIAL IV SCH ×7 (00:30→23:59)
[2018-10-19] MEDS: INSULIN REGULAR 100 UNIT/ML SUBCUT SCH ×4 (00:49→18:48)
[2018-10-19 05:07] LABS: Basophils % 0.1 % (0.0-0.8); Eosinophils # 0.1 10*3/uL (0.0-0.87); Eosinophils % 0.9 % (0.00-10.9); Hematocrit 32.8 VOL% (42.0-52.0); Hemoglobin 9.9 GM/DL (14.0-18.0); Immature Granulocytes % 0.6 %; Immature Granulocytes Absolute 0.06 #; Lymphocytes # 0.4 10*3/uL (1.4-4.0); Lymphocytes % 4.7 % (21.2-54.2); Mean Corpuscular HGB Conc 30.2 GM/DL (32-36); Mean Corpuscular Hemoglobin 27 PG (27-34); Mean Corpuscular Volume 89.4 FL (87-102); Mean Platelet Volume 10.8 FL (9.6-12.0); Monocytes # 0.6 10*3/uL (0.11-0.8); Monocytes % 6.7 % (1.7-12.7); Neutrophils # 8.1 10*3/uL (1.4-7.4); Platelet Count 222 T/CUMM (130-400); Red Blood Count 3.67 MC/CUMM (3.8-5.5); Red Cell Distribution Width 23.9 % (9.3-17.3); White Blood Count 9.3 T/CUMM (4-12)
[2018-10-19 05:09] LABS: Calcium 8.3 MG/DL (8.5-10.1); Osmolality,Calculated 277.5 MOS/KG (273-304); Potassium 3.8 MMOL/L (3.5-5.1)
[2018-10-19 05:36] LABS: Eosinophils 1 % (0-10); Hypochromasia 1+; Lymphocytes 11 % (20-55); Microcytosis Slight; Platelet Estimate Adequate; Segmented Neutrophils 82 % (50-85); Total Cells Counted 100
[2018-10-19] MEDS: ALBUTEROL/IPRATROPIUM 3 ML NEB RESP TX SCH ×4 (07:20→20:28)
[2018-10-19] MEDS: FUROSEMIDE 20 MG TABLET PO SCH ×2 (09:25→17:21)
[2018-10-19] MEDS: predniSONE 20 MG TABLET PO SCH (09:26)
[2018-10-19] MEDS: POLYETHYLENE GLYCOL POWDER 17 GM PACK PO SCH (09:26)
[2018-10-19] MEDS: MENTHOL/ZINC OXIDE OINT 71 GM JAR TOP SCH ×2 (09:27→20:22)
[2018-10-19] MEDS: INSULIN NPH 100 UNIT/ML SUBCUT SCH (09:29)
[2018-10-19] MEDS: PANTOPRAZOLE 40 MG TABLET PO SCH (09:32)
[2018-10-19] MEDS: HYDROcodone/HOMATROPINE 5 ML UDCUP PO PRN ×2 (14:09→20:15)
[2018-10-19] MEDS: LEVOFLOXACIN INJ 500 MG in PREMIX 1 EACH IV SCH (14:09)
[2018-10-19] MEDS: MIRTAZAPINE 15 MG TABLET PO SCH (20:15)
[2018-10-19] MEDS: BUDESONIDE/FORMOTEROL 160-4.5 INHALER 6 GM INH SCH (20:23)
[2018-10-20] MEDS: INSULIN REGULAR 100 UNIT/ML SUBCUT SCH ×3 (00:07→12:30)
[2018-10-20] MEDS: ALBUTEROL/IPRATROPIUM 3 ML NEB RESP TX SCH ×2 (02:19→07:05)
[2018-10-20] MEDS: HYDROcodone/HOMATROPINE 5 ML UDCUP PO PRN ×2 (04:26→10:49)
[2018-10-20] MEDS: MORPHINE 4 MG/1 ML VIAL IV SCH ×3 (04:26→12:30)
[2018-10-20] MEDS: fentaNYL 50 MCG/HR PATCH TRANSDERM SCH (09:47)
[2018-10-20] MEDS: POLYETHYLENE GLYCOL POWDER 17 GM PACK PO SCH (09:48)
[2018-10-20] MEDS: FUROSEMIDE 20 MG TABLET PO SCH (09:48)
[2018-10-20] MEDS: MENTHOL/ZINC OXIDE OINT 71 GM JAR TOP SCH (09:48)
[2018-10-20] MEDS: predniSONE 20 MG TABLET PO SCH (09:48)
[2018-10-20] MEDS: INSULIN NPH 100 UNIT/ML SUBCUT SCH (09:49)
[2018-10-20] MEDS: BUDESONIDE/FORMOTEROL 160-4.5 INHALER 6 GM INH SCH (09:51)
[2018-10-20] MEDS: PANTOPRAZOLE 40 MG TABLET PO SCH (09:56)
[2018-10-20 12:11] VITALS: BP 96/69
== END 2018-10-20 12:25 | disposition swing bed (61) | DRG 193 ==
LOC: EDBD → EDUNIT# → N.ED 14:05 → N.EDINP 17:24 → SUATTDRO 17:24 → N.CC 17:51 → N.4E 10-03 16:12
PROVIDERS: ADMIT Family Medicine; ATTEND Internal Medicine